=== PATIENT | male | born 1935 | race Asian ===

== ENCOUNTER 2019-03-13 14:28 | Emergency (ER) | payer OTHER, MEDICAID ==
[~2019-03-13] VITALS: Ht 167.6 cm; Wt 90.7 kg
[2019-03-13 14:51] VITALS: Ht 167.6 cm; Wt 90.7 kg
[2019-03-13 19:40] VITALS: BP 143/62
== END 2019-03-13 19:40 | disposition home or self-care (01) ==
LOC: ED 14:28
DX: M54.42 Lumbago with sciatica, left side (principal); N39.0 Urinary tract infection, site not specified; I10 Essential (primary) hypertension
CPT/HCPCS: J1885